=== PATIENT | female | born 1995 | race Caucasian/White ===

== ENCOUNTER 2017-10-16 10:10 | Emergency (ER) | payer BC ==
[2017-10-16 12:19] LABS: ABS Basophils 0.1 10^3/ul (0-0.2); ABS Eosinophils 0.1 10^3/ul (0-0.6); ABS Lymphocytes 1.2 10^3/ul (1.0-4.8); ABS Monocytes 0.5 10^3/ul (0-0.8); ABS Neutrophils 4.8 10^3/ul (1.5-7.7); ABS Nucleated RBC 0 10^3/ul; Eosinophil % 1.1 % (0-6); Hematocrit 38 % (35-47); Hemoglobin 13.1 g/dl (12.0-16.0); Lymphocyte % 17.9 % (25-47); Mean Corpuscular HGB Conc 35 g/dl (31-36); Mean Corpuscular Hemoglobin 31 pg (27-31); Mean Corpuscular Volume 89 fL (80-97); Mean Platelet Volume 8.5 um3 (7.4-10.4); Nucleated Red Blood Cells % 0; Platelet Count 227 10^3/ul (150-450); Red Blood Count 4.28 10^6/ul (4.0-5.4); Red Cell Distribution Width 13 % (10.5-15); White Blood Count 6.6 10^3/ul (3.5-10.8)
[2017-10-16 13:52] VITALS: BP 121/75
--- NOTE | 2017-10-16 21:46 | ED ---
Dorina Interiano Thomas, scribed for Armani Disla MD on 10/16/17 at 1202 . Complex/Multi-Sys Presentation - HPI Summary HPI Summary: The patient is a 22 year old female who complains of sore throat, chills, and shakes that began three days ago. She was diagnosed with Strep Throat two days ago, and she is on penicillin. This morning, the patient woke up with a stiff neck that is aggravated by movement, prompting an ED visit. 12 days ago, the patient had her wisdom teeth removed. - History Of Current Complaint Chief Complaint: EDNeckComplaint Time Seen by Provider: 10/16/17 11:34 Hx Obtained From: Patient Onset/Duration: Lasting Days, Still Present Timing: Constant Aggravating Factor(s): Movement Alleviating Factor(s): None Associated Signs And Symptoms: Positive: Other - Sore throat, chills, sahkes, neck stiffness Related History: Other - Recent wisdom teeth removal, strep diagnosis - Allergies/Home Medications Allergies/Adverse Reactions: Allergies Allergy/AdvReac Type Severity Reaction Status Date / Time Sulfa (Sulfonamide Allergy Rash Verified 10/16/17 10:15 Antibiotics) Home Medications: Home Medications Ibuprofen TAB* [Advil TAB*] 200 - 400 mg PO Q8H PRN 10/16/17 [History Confirmed 10/16/17] Penicillin VK TAB* [Penicillin VK 250 mg Tab*] 500 mg PO BID 10/16/17 [History Confirmed 10/16/17] PMH/Surg Hx/FS Hx/Imm Hx Endocrine/Hematology History: Denies: Hx Diabetes Cardiovascular History: Denies: Hx Hypertension Infectious Disease History: Yes Infectious Disease History: Denies: Traveled Outside the [place] in Last 30 Days - Family History Known Family History: Positive: Other - Patient denies relevant FHx - Social History Occupation: Student Alcohol Use: Occasionally Substance Use Type: Reports: None Smoking Status (MU): Never Smoked Tobacco Review of Systems Positive: Chills, Other - Shakes Positive: Sore Throat Positive: Other - Stiff neck All Other Systems Reviewed And Are Negative: Yes Physical Exam - Summary Physical Exam Summary: Appearance: The patient is well-nourished in no acute distress and in no acute pain. Skin: The skin is warm and dry and skin color reflects adequate perfusion. HEENT: The head is normocephalic and atraumatic. The pupils are equal and reactive. The conjunctivae are clear and without drainage. Nares are patent and without drainage. Mouth reveals moist mucous membranes. The throat is mildly erythematous. There is also mild erythema around her left mandibular molar. The external ears are intact. The ear canals are patent and without drainage. The tympanic membranes are intact. Neck: the neck is supple with full range of motion. There is tenderness to the midline in the lower cervical spine. There are not any meningeal signs. There is anterior cervical lymphadenopathy that is non-tender. There are no carotid bruits. There is no neck vein distension. Respiratory: Chest is non-tender. Lungs are clear to auscultation and breath sounds are symmetrical and equal. Cardiovascular: Heart is regular rate and rhythm. There is no murmur or rub auscultated. There is no peripheral edema and pulses are symmetrical and equal. Abdomen: The abdomen is soft and non-tender. There are normal bowel sounds heard in all four quadrants and there is no organomegaly palpated. Musculoskeletal: There is no back tenderness noted. She is tender to the upper shoulders. Otherwise, extremities are non-tender with full range of motion. There is good capillary refill. There is no peripheral edema or calf tenderness elicited. Neurological: Patient is alert and oriented to person, place and time. The patient has symmetrical motor strength in all four extremities. Cranial nerves are grossly intact. Deep tendon reflexes are symmetrical and equal in all four extremities. There are not any meningeal signs. Psychiatric: The patient has an appropriate affect and does not exhibit any anxiety or depression. Triage Information Reviewed: Yes Vital Signs On Initial Exam: Initial Vitals Temp Pulse Resp BP Pulse Ox 98.8 F 98 16 117/87 97 10/16/17 10:15 10/16/17 10:15 10/16/17 10:15 10/16/17 10:15 10/16/17 10:15 Vital Signs Reviewed: Yes Diagnostics - Vital Signs Vital Signs Temp Pulse Resp BP Pulse Ox 10/16/17 11:34 79 128/82 98 10/16/17 11:33 85 98 10/16/17 11:28 98.0 F 90 16 122/78 98 10/16/17 10:15 98.8 F 98 16 117/87 97 - Laboratory Lab Results: Lab Results 10/16/17 10/16/17 Range/Units 12:11 12:11 WBC 6.6 (3.5-10.8) 10^3/ul RBC 4.28 (4.0-5.4) 10^6/ul Hgb 13.1 (12.0-16.0) g/dl Hct 38 (35-47) % MCV 89 (80-97) fL MCH 31 (27-31) pg MCHC 35 (31-36) g/dl RDW 13 (10.5-15) % Plt Count 227 (150-450) 10^3/ul MPV 8.5 (7.4-10.4) um3 Neut % (Auto) 72.4 (38-83) % Lymph % (Auto) 17.9 L (25-47) % Parker % (Auto) 7.6 H (0-7) % Eos % (Auto) 1.1 (0-6) % Baso % (Auto) 1.0 (0-2) % Absolute Neuts (auto) 4.8 (1.5-7.7) 10^3/ul Absolute Lymphs (auto) 1.2 (1.0-4.8) 10^3/ul Absolute Monos (auto) 0.5 (0-0.8) 10^3/ul Absolute Eos (auto) 0.1 (0-0.6) 10^3/ul Absolute Basos (auto) 0.1 (0-0.2) 10^3/ul Absolute Nucleated RBC 0 10^3/ul Nucleated RBC % 0 C-Reactive Protein 13.31 H (< 5.00) mg/L Result Diagrams: 10/16/17 12:11 Lab Statement: Any lab studies that have been ordered have been reviewed, and results considered in the medical decision making process. Complex Multi-Symp Course/Dx Course Of Treatment: Ms. Shay is being treated for a strep throat which is getting better after two days of PCN. She still has a lot of lymphadenopathy though. She woke up with some neck stiffnes and came in worried . She had no meningeal signs, was tender over the cervical spine and had normal vitals and labs. I don't think an LP is indicated at this time. - Diagnoses Provider Diagnoses: Pharyngitis Discharge - Sign-Out/Discharge Documenting (check all that apply): Discharge/Admit/Transfer - Discharge Plan Condition: Stable Disposition: HOME Patient Education Materials: Pharyngitis (ED) Referrals: [facility] - Norbert MONK [Primary Care Provider] - 3 Days Additional Instructions: Follow up with [facility] in three days. Return to the emergency department for any new or worsening symptoms. - Billing Disposition and Condition Condition: STABLE Disposition: HOME The documentation as recorded by the Dorina mccartney Thomas accurately reflects the service I personally performed and the decisions made by me, Armani Disla MD.
== END 2017-10-16 13:52 | disposition home or self-care (01) ==
LOC: ED 10:10
DX: J02.9 Acute pharyngitis, unspecified (principal); Z88.2 Allergy status to sulfonamides
CPT/HCPCS: 36415; 85025; 86140; 99282